=== PATIENT | female | born 1975 | race Caucasian/White ===

== ENCOUNTER → 2023-09-07 07:39 | Outpatient (REF) | payer OTHER, SELFPAY | LOC: WDC 07:39 | PROVIDERS: ATTENDING PHYSICIAN Internal Medicine | DX: Z12.31 Encounter for screening mammogram for malignant neoplasm of breast (principal) | CPT/HCPCS: 77063; 77067 ==

== ENCOUNTER → 2024-08-10 13:07 | Outpatient (REF) | payer OTHER, SELFPAY | LOC: RAD 13:07 | PROVIDERS: ATTENDING PHYSICIAN Internal Medicine | DX: Z00.00 Encounter for general adult medical examination without abnormal findings (principal); E04.1 Nontoxic single thyroid nodule | CPT/HCPCS: 76536 ==

== ENCOUNTER → 2024-09-12 11:29 | Outpatient (REF) | payer OTHER, SELFPAY | LOC: WDC 11:29 | PROVIDERS: ATTENDING PHYSICIAN Internal Medicine | DX: Z12.31 Encounter for screening mammogram for malignant neoplasm of breast (principal) | CPT/HCPCS: 77063; 77067 ==

== ENCOUNTER → 2024-11-19 13:25 | Outpatient (REF) | payer OTHER, SELFPAY | LOC: RAD 13:25 | PROVIDERS: ATTENDING PHYSICIAN Nurse Practitioner Adult Health | DX: S09.90XA Unspecified injury of head, initial encounter (principal); W19.XXXA Unspecified fall, initial encounter; F07.81 Postconcussional syndrome; G44.319 Acute post-traumatic headache, not intractable | CPT/HCPCS: 70450 ==